=== PATIENT | male | born 1970 | race Caucasian/White ===

== ENCOUNTER 2018-03-11 03:33 | Observation (INO) | payer MEDICARE, BC ==
[2018-03-11] VITALS (10 sets, daily range): BP systolic 86–139; BP diastolic 37–74; Ht 172.7 cm; Wt 118.9 kg
[~2018-03-11] VITALS: Ht 172.7 cm; Wt 118.9 kg
--- NOTE | ~2018-03-11 | HEMODYNAMI ---
PATIENT:LUPE COOK MEDICAL RECORD: [id number] : 68 LOCATION:[facility] D.2116 ADMISSION DATE: 03/11/18 Generatedon:03/11/201811:43 Patient name: LUPE COKO Patient #: [id number] SSN: : 1970 Date of study: 03/11/2018 Page: Of Hemodynamic Procedure Report Patient Data Patient Demographics Procedure consent was obtained First Name: LUPE Gender: Male Last Name: JOYCE : 1970 [facility] Initial: B Age: 48 year(s) Patient #: [id number] Race: Unknown Additional ID: [id number] Contact details [address]: [address] [place] [address] COURT State: [place] City: [place] Zip code: [address] Past Medical History Allergies Allergen Reaction Date Comments Reported Sulfa drugs 03/11/2018 Penicillins 03/11/2018 Admission Admission Data Admission Date: 03/11/2018 Admission Time: 4:49 Room #: 2116 Procedure Procedure Types Cath Procedure Diagnostic Procedure [facility] w/Coronaries Procedure Description Procedure Date Procedure Date: 03/11/2018 Procedure Start Time: 11:23 Procedure End Time: 11:43 Procedure Staff Name Function Carlos Llanes MD Performing Physician Ailyn Scott RT Monitor Shun Lew RN Nurse Rose Auguste RT Scrub Procedure Data Cath Procedure Fluoroscopy Diagnostic fluoroscopy Total fluoroscopy Time: 8.2 time: 8.2 min min Diagnostic fluoroscopy Total fluoroscopy dose: dose: 2041 mGy 2041 mGy Contrast Material Contrast Material Type Amount (ml) Isovue 370 91 Entry Location Entry Primary Successful Side Size Upsize Upsize Entry Closure Pearce ccessful Closure Location (Fr) 1 (Fr) 2 (Fr) Remarks Device Remarks Radial Right 6 Fr Mechanical artery Short Compression Estimated blood loss: 5 ml Diagnostic catheters Device Type Used For End Catheter Placement DIAGNOSTIC Cecil 110cm 5 LV Angiography Fr catheter ([id number]) DIAGNOSTIC Cecil 110cm 5 Right Coronary Fr catheter (072191) Angiography DIAGNOSTIC Cecil 110cm 5 Left Coronary Fr catheter (127446) Angiography Procedure Complications No complications Procedure Medications Medication Administration Route Dosage Oxygen NC 2 l/min Lidocaine 2% added to field 20 Heparin Flush Bag added to field 2 bags (1000units/500ml NS) 0.9% NaCl I.V. 100 ml/hr Radial Cocktail I.A. 1 syringe (Verapomil 2mg/Nitro 400mcg/Heparin 1500units) Versed I.V. 1 mg Fentanyl I.V. 50 mcg Versed I.V. 1 mg Fentanyl I.V. 50 mcg Hemodynamics Rest Heart Rate: 82 (bpm) Pressure Samples Time Site Value (mmHg) Purpose Heart Use Rate(bpm) 11:27 LV 151/-20,12 EDP 85 Gradients Valve Time Site Site Mean SEP/DFP Peak To Heart Use 1 2 (mmHg) (sec/min) Peak Rate (mmHg) (bpm) Aortic 11:27 LV AO 79 Snapshots Pre Cath Intra NCS Post Cath Vital Signs Time Heart Resp SPO2 etCO2 NIBP (mmHg) Rhythm Pain Sedation Rate (ipm) (%) (mmHg) Status Level (bpm) 11:16:54 68 17 100 31.4 155/83(118) NSR 0 (11) 10(A) , No pain 11:21:15 77 18 100 28.4 155/88(122) NSR 0 (11) 10(A) , No pain 11:25:41 86 16 100 32.2 156/76(97) NSR 0 (11) 10(A) , No pain 11:29:59 83 15 94 33 128/79(99) NSR 0 (11) 9(A) , No pain 11:34:17 88 14 96 33.7 139/82(106) NSR 0 (11) 10(A) , No pain 11:38:39 87 14 97 33 142/80(104) NSR 0 (11) 10(A) , No pain 11:43:02 83 15 97 32.2 141/86(108) NSR 0 (11) 10(A) , No pain Medications Time Medication Route Dose Verified Delivered Reason Notes Effectiveness by by 11:20:49 Oxygen NC 2 l/min Carlos Buffie used for 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 100 Carlos Buffie Per ml/hr Shraddha Lew RN physician 11:23:11 Fentanyl I.V. 50 mcg Carlos Buffie for sedation Shraddha Lew RN, MD 11:23:30 Versed I.V. 1 mg Carlos Buffie for sedation Shraddha Lew RN, MD 11:25:16 Radial Cocktail I.A. 1 Carlos Carlos for (Verapomil syringe Shraddha Llanes MD vasodilation 2mg/Nitro MD 400mcg/Heparin 1500units) 11:27:34 Versed I.V. 1 mg Carlos Buffie for sedation Shraddha Lew RN, MD 11:27:38 Fentanyl I.V. 50 mcg Carlos Buffie for sedation Shraddha Lew RN, MD Procedure Log Time Note 10:51:27 Time tracking: Regular hours (M-F 7:00 - 5:00) 10:51:30 Plan of Care:Hemodynamics will remain stable., Cardiac rhythm will remain stable., Comfort level will be maintained., Respiratory function will remain adequate., Patient/ family verbilizes understanding of procedure., Procedure tolerated without complication., Recovers from procedure without complications.. 10:54:12 Ailyn Counts RT(R) sent for patient. Start room use. 11:04:07 Patient received from PCU to [facility] 2 Alert and oriented. Tansferred to table in Supine position. 11:04:08 Warm blankets applied, and jonathon hugger turned on for patient comfort. 11:04:08 Correct patient and procedure confirmed by team. 11:04:10 Signed procedure consent form obtained from patient. 11:04:11 ECG and BP/O2 sat monitors applied to patient. 11:04:11 Full Disclosure recording started 11:15:37 Vital chart was started 11:16:31 Rhythm: sinus rhythm 11:16:38 H&P Date Dictated: 03/11/2018 Within 30 days and on chart.. 11:16:44 Pre-procedure instructions explained to patient. 11:16:44 Pre-op teaching completed and patient verbalized understanding. 11:16:45 Family in patients room. 11:16:47 Patient NPO since Midnight. 11:16:54 Patient allergic to Sulfa drugs 11:16:58 Patient allergic to Penicillins 11:17:00 Is the patient allergic to Iodine/contrast media? No. 11:17:06 Is patient on blood thinner?Yes 11:17:09 ACC The patient was administered the following blood thiners within the last 24 hours: ACCAspirin, ACCPlavix 11:17:11 Patient diabetic? Yes. 11:17:12 If diabetic: On Metformin? Yes 11:17:14 If on Metformin: Last Dose? 03/10/2018 11:17:37 Previous problem with sedation/anesthesia? Yes bronchospasms w/intubation 11:17:39 Snore? Yes 11:17:41 Sleep apnea? Yes 11:17:42 Deviated septum? No 11:17:43 Opens mouth fully? Yes 11:17:44 Sticks out tongue? Yes 11:17:48 Airway obstruction? No ? 11:17:50 Dentures? No ? 11:17:53 Pre procedure: right dorsailis pedis pulse 2+ Normal; easily identifiable; not easily obliterated 11:17:55 Modified Ralf's test Ulnar < 7 seconds 11:18:00 Patient pain scale 3/10 chest. 11:18:05 IV patent on arrival in left hand with 0.9% NaCl at [facility]. 11:18:10 Lab results completed and on chart. 11:18:12 Right Radial & Right Groin area was prepped with chlora-prep and draped in sterile fashion 11:18:13 Alarms reviewed by R. N. 11:18:14 Sharps counted by scrub and verified by R.N. 11:18:14 Final Timeout: patient, procedure, and site verified with staff and physician. All members of the team are in agreement. 11:18:16 Right Radial site verified by team. 11:18:19 Physical assessment completed. ASA score P 2 - A patient with mild systemic disease as per Carlos Llanes MD. 11:18:21 Sedation plan: IV Moderate Sedation Medication:Versed, Fentanyl 11:20:49 Oxygen 2 l/min NC was administered by Shun Lew RN; used for procedure; 11:20:51 Zero performed for pressure channel P1 11:20:57 Lidocaine 2% 20ml vial added to field was administered by Carlos Llanes MD; for local anesthetic; 11:21:03 Heparin Flush Bag (1000units/500ml NS) 2 bags added to field was administered by Carlos Llanes MD; used for procedure; 11:21:13 0.9% NaCl 100 ml/hr I.V. was administered by Shun Lew RN; Per physician; 11:21:23 Use device set Radial Dx or PCI 11:21:24 ACIST Syringe (10957) opened to sterile field. 11:21:25 Medline Cath Pack ([id number]) opened to sterile field. 11:21:25 Bag Decanter (2002) opened to sterile field. 11:21:26 DIAGNOSTIC WIRE .035 260cm J wire (286061) opened to sterile field. 11:21:27 ACIST Hand Control (83262) opened to sterile field. 11:21:27 ACIST Manifold (48138) opened to sterile field. 11:21:31 MBrace Wrist Support ([id number]) opened to sterile field. 11:21:33 SHEATH 6Fr Prelude Radial ([id number]) opened to sterile field. 11:22:57 Procedure started. 11:23:11 Fentanyl 50 mcg I.V. was administered by Shun Lew RN; for sedation; 11:23:15 Local anesthetic to right radial artery with Lidocaine 2% by Carlos Llanes MD.INITIAL ACCESS ONLY 11:23:30 Versed 1 mg I.V. was administered by Shun Lew RN; for sedation; 11:23:46 Baseline sample Acquired. 11:24:17 A 6 Fr Short sheath was inserted into the Right Radial artery 11:25:16 Radial Cocktail (Verapomil 2mg/Nitro 400mcg/Heparin 1500units) 1 syringe I.A. was administered by Carlos Llnaes MD; for vasodilation; 11:25:18 A DIAGNOSTIC Cecil 110cm 5 Fr catheter (545558) was advanced over the wire and used for LV Angiography. 11:27:15 LV gram done using HAYNES 11:27:20 Injector settings: Ml/sec: 12, Volume: 8, 11:27:21 LV hemodynamics recorded. 11:27:34 Versed 1 mg I.V. was administered by Shun Lew RN; for sedation; 11:27:38 Fentanyl 50 mcg I.V. was administered by Shun Lew RN; for sedation; 11:29:03 A DIAGNOSTIC Cecil 110cm 5 Fr catheter (112191) was advanced over the wire and used for Right Coronary Angiography. 11:32:07 A DIAGNOSTIC Cecil 110cm 5 Fr catheter (221050) was advanced over the wire and used for Left Coronary Angiography. 11:37:08 Catheter removed. 11:37:12 Procedure ended.(Physican Out) 11:37:27 Sheath removed intact; hemostasis achieved with Mechanical Compression to the Right Radial artery. 11:37:36 Fluoroscopy time 08.20 minutes. 11:37:48 Fluoroscopy dose: 1 mGy 11:37:48 Flurop Dose total: 2040 11:37:58 Contrast amount:Isovue 370 91ml. 11:37:59 Sharps counted by scrub and verified by R.N. 11:38:02 TR band inflated with 12cc of air. 11:38:04 Insertion/operative site no bleeding no hematoma. 11:38:13 Post right radial artery:stable, clean and dry 11:38:14 Post Procedure Pulses reassessed and unchanged 11:38:17 Post-procedure physical assessment completed. ASA score P 2 - A patient with mild systemic disease as per Carlos Llanes MD. 11:38:22 Post procedure rhythm: unchanged. 11:38:32 Estimated blood loss: 5 ml 11:38:38 Post procedure instruction explained to patient.Patient verbalizes understanding. 11:38:39 Patient needs reinforcement of post procedure teaching. 11:38:44 TR BAND Large ([id number]) opened to sterile field. 11:39:16 Procedure Complication : No complications 11:39:20 See physician's report for complete and final results. 11:39:45 Procedure and supply charges have been captured, reviewed, submitted and are correct. 11:43:07 Vital chart was stopped 11:43:13 Report given to PCU. 11:43:16 Patient transfered to PCU with Bed. 11:43:21 Procedure ended. 11:43:21 Full Disclosure recording stopped 11:43:30 End room use (Document Last) Device Usage Item Name Manufacture Quantity Catalog Number Hospital Part Current M inimal Lot# / Charge Number Stock Stock Serial# Code ACIST Syringe Acist 1 61558 242706 118310 205748 2 0 (13743) [employer] Medline Cath Cardinal 1 [id number] 615721 06802 334298 5 Pack Health ([id number]) Bag Decanter Microtek 1 2001S 557781 30199 217685 5 (2001S) Medical Inc. DIAGNOSTIC WIRE St Jag 1 022041 620224 548425 310640 3 0 .035 260cm J wire (613033) ACIST Hand Acist 1 84996 610100 146126 312845 5 Control (61207) [employer] ACIST Manifold Acist 1 54298 307861 136325 223344 5 (92270) [employer] MBrace Wrist Advanced 1 140-0250-00 816407 99153 699828 5 Support Vascular ([id number]) Dynamics SHEATH 6Fr Merit 1 [id number] 183164 682318 303193 5 Prelude Radial Medical ([id number]) DIAGNOSTIC Terumo 1 40-6491 573828 186270 923404 5 Cecil 110cm 5 Fr catheter (472132) TR BAND Large Terumo 1 [id number] 216091 067199 744106 4 0 ([id number]) Signature Audit [place] Stage Time Signature Unsigned Intra-Procedure 03/11/2018 Ailyn 11:43:54 AM Counts RT(R) Signatures Monitor : Ailyn Signature : Counts RT Date : Time : [address] [address]
--- NOTE | ~2018-03-11 | EC ---
PATIENT:LUPE COOK DATE OF SERVICE: 03/11/18 SEX: M MEDICAL RECORD: [id number] DATE OF : 68 LOCATION:D.M2 D.211 AGE OF PATIENT: 48 ADMISSION DATE: 03/11/18 REFERRING PHYSICIAN: INTERPRETING PHYSICIAN: SIOBHAN WERNER MD ECHOCARDIOGRAM REPORT ECHO CHARGES 4 ECHO COMPLETE Date: 03/11 CLINICAL DIAGNOSIS: CHEST PAIN ECHOCARDIOGRAPHIC MEASUREMENTS (adult normal given) AC root (d.<3.7cm) 3.5 cm LV Septum d (<1.2 cm> 1.4 cm Valve Excursion 2.1 cm LV Septum (systole) 1.5 cm Left Atria (s.<4.0cm> 4.3 cm LVPW d(<1.2cm) 1.3 cm RV (d.<2.3cm) 4.2 cm LVPW (sytole) 1.9 cm LV diastole(<5.6CM) 5.9 cm MV E-F(>70mm/sec) cm LV systole 4.0 cm LVOT Diameter 2.5 cm MV exc.(>10mm) 1.9 cm Est.ejection fraction (50-75%) % DOPPLER: LVIT cm/sec A 72.0 cm/sec E 94.0 cm/sec LA cm/sec RVSP 18 mmHg LVOT 107 cm/sec AOP1/2T m/s Asc. Ao 149 cm/sec RVOT 95 cm/sec RA cm/sec PA 135 cm/sec AV Gradient Peak 8.89 mmHg AV Mean 4.51 mmHg AV Area 3.6 cm MV Gradient Peak 7.36 mmHg MV Mean 2.15 mmHg MV Area cm COMMENTS: [employer] Developer: Stephanie SANTOS Picker Machine Operator: Mike Werner TAPE# PACS Pericardial Effusion N DATE OF SERVICE: PROCEDURE: Transthoracic echocardiogram. FINDINGS: 1. Left ventricle has mild left ventricular hypertrophy. Inflow characteristics are normal. Ejection fraction is 60%. 2. The left atrium is mildly dilated. 3. The mitral valve is grossly normal. 4. The aortic valve is grossly normal. ECHOCARDIOGRAM REPORT [id number] LUPE COOK 5. The tricuspid valve has trace tricuspid regurgitation. RVSP is normal. Pericardium is normal. 6. The right ventricle is mildly dilated. 7. The right atrium is mildly dilated. 8. The pulmonic valve appears to be normal. CONCLUSIONS: The patient has evidence of mild left ventricular hypertrophy, otherwise normal echocardiogram. TRANSINT:[id number] Voice Confirmation ID: [id number] DOCUMENT ID: [id number] SIOBHAN WERNER MD at 0927 CC: [id number] DICTATION DATE: 03/12/18821 PLIER WORKER: 03/12/18 1225 DIS IN 03/12/18 [facility] [address] [place] [address]
[~2018-03-11 03:33] MED LIST: ALOPHEN PILLS5 MG PO; AMBIEN10 MG PO; CIALIS10 MG PO; COLACE100 MG PO; DEMEROL 2525 MG/1 ML IM; DEMEROL50 MG PO; DULCOLAX10 MG/SUPP RC; DURAGESIC1 PATCH .2 TD; GLUCOPHAGE1000 MG PO; LOMOTIL TABLET1 TAB PO; LYRICA50 MG PO; MEDROL DOSE PACK4 MG PO; MIRALAX17 GM PO; NORVASC10 MG PO; ROXICODONE5 MG PO; SENOKOT-S TABLE1 TAB PO; TESTOSTERONE IM; ULTRAM50 MG PO; VALIUM5 MG PO; VICTOZA0.6 MG/0.1 SQ; VITAMIN B-1000 MCG/M IM; VYVANSE70 MG PO; WELLBUTRIN XL300 M1 PO; ZANAFLEX2 MG PO; ZOFRAN4 MG PO
[2018-03-11] MEDS ORDERED: KOMBIGLYZE XR1 EAC1 PO (03:42)
[2018-03-11] MEDS ORDERED: HUMULIN R100 U/ML SC (03:44)
[2018-03-11 04:00] LABS: BASOPHILS 0.2 % (0-2); EOSINOPHILS 1.5 % (0-7); HEMATOCRIT 44.8 % (42.0-54.0); HEMOGLOBIN 16.2 g/dL (13.5-17.5); IMMATURE GRANULOCYTES 0.8 % (0-5); LYMPHOCYTES 30.2 % (15-50); MCH 31.8 pg (26.0-34.0); MCHC 36.2 g/dL (31.0-37.0); MEAN PLATELET VOLUME 11.4 fL (7.4-10.4); MONOCYTES 13.7 % (2-11); NEUTROPHILS 53.6 % (40-80); PLATELET COUNT 349 10x3/uL (130-400); RBC 5.09 10x6/uL (4.20-6.10); RDW 13.6 % (11.5-14.5); WBC 9.6 10x3/uL (4.8-10.8)
[2018-03-11 04:24] LABS: ALBUMIN 3.6 g/dL (3.4-5.0); ALKALINE PHOSPHATASE 78 U/L (46-116); ALT (SGPT) 26 U/L (10-68); CALC OSMOLALITY 278 mosm/kg (275-300); CALCIUM 8.8 mg/dL (8.5-10.1); CARBON DIOXIDE 22.5 mmol/L (21.0-32.0); CHLORIDE - SERUM 103 mmol/L (98-107); POTASSIUM - SERUM 3.9 mmol/L (3.5-5.1); PROTEIN - SERUM 7.2 g/dL (6.4-8.2); SODIUM 136 mmol/L (136-145); UREA NITROGEN 12 mg/dL (7-18); eGFR NON AFRICAN AMERICAN 84 mL/min (90-120)
[2018-03-11 04:26] LABS: GLUCOSE 216 mg/dL (74-106)
[2018-03-11 04:27] LABS: CREATINE KINASE 87 UL (21-232); TROPONIN-I < 0.017 ng/mL (0.000-0.060)
[2018-03-11 04:38] LABS: APTT 27.7 SECONDS (22.8-39.4); INR 1.02 (0.85-1.17)
[2018-03-12 01:09] VITALS: BP 158/64
[2018-03-12 05:59] LABS: BASOPHILS 0.1 % (0-2); EOSINOPHILS 2.4 % (0-7); HEMATOCRIT 45.5 % (42.0-54.0); HEMOGLOBIN 16.1 g/dL (13.5-17.5); IMMATURE GRANULOCYTES 0.7 % (0-5); MCH 31.5 pg (26.0-34.0); MCHC 35.4 g/dL (31.0-37.0); MEAN PLATELET VOLUME 9.9 fL (7.4-10.4); MONOCYTES 13.6 % (2-11); NEUTROPHILS 52.2 % (40-80); RBC 5.11 10x6/uL (4.20-6.10); RDW 12.7 % (11.5-14.5); WBC 7.5 10x3/uL (4.8-10.8)
[2018-03-12 06:05] VITALS: BP 112/55
[2018-03-12 06:34] LABS: ALBUMIN 3.2 g/dL (3.4-5.0); ALKALINE PHOSPHATASE 76 U/L (46-116); ALT (SGPT) 23 U/L (10-68); BILIRUBIN - TOTAL 0.49 mg/dL (0.2-1.3); CALCIUM 8.5 mg/dL (8.5-10.1); CARBON DIOXIDE 26.3 mmol/L (21.0-32.0); CHLORIDE - SERUM 104 mmol/L (98-107); POTASSIUM - SERUM 3.6 mmol/L (3.5-5.1); PROTEIN - SERUM 6.7 g/dL (6.4-8.2); SODIUM 138 mmol/L (136-145); UREA NITROGEN 13 mg/dL (7-18)
[2018-03-12 06:35] LABS: CALC OSMOLALITY 278 mosm/kg (275-300); CREATININE - SERUM 0.6 mg/dL (0.6-1.3); GLUCOSE 152 mg/dL (74-106); eGFR NON AFRICAN AMERICAN > 90 mL/min (90-120)
[2018-03-12 07:02] LABS: PLATELET COUNT 161 10x3/uL (130-400)
[2018-03-12] MEDS ORDERED: PROAIR HFA8.5 GM INH (13:43)
== END 2018-03-12 16:11 | disposition home or self-care (01) ==
LOC: D.ER 03:33 → D.EDHOLD 04:49 → OBSVTIME 04:49 → D.M2 04:49
PROVIDERS: Emergency Medicine; Family Medicine
DX: R07.89 Other chest pain (principal); I25.10 Atherosclerotic heart disease of native coronary artery without angina pectoris; E11.65 Type 2 diabetes mellitus with hyperglycemia; I10 Essential (primary) hypertension; F32.9 Major depressive disorder, single episode, unspecified; F41.9 Anxiety disorder, unspecified; E66.9 Obesity, unspecified

== ENCOUNTER 2018-05-02 16:20 | Emergency (ER) | payer MEDICARE, BC ==
[~2018-05-02] VITALS: Ht 172.7 cm; Wt 112.5 kg
[~2018-05-02 16:20] MED LIST changes: +HUMULIN R100 U/ML SC; +KOMBIGLYZE XR1 EAC1 PO; +PROAIR HFA8.5 GM INH
[2018-05-02 16:28] VITALS: Ht 172.7 cm; Wt 112.5 kg
[2018-05-02 16:57] LABS: BASOPHILS 0.1 % (0-2); EOSINOPHILS 0 % (0-7); HEMATOCRIT 49.3 % (42.0-54.0); HEMOGLOBIN 18.4 g/dL (13.5-17.5); IMMATURE GRANULOCYTES 0.4 % (0-5); LYMPHOCYTES 18.8 % (15-50); MCH 33.3 pg (26.0-34.0); MCHC 37.3 g/dL (31.0-37.0); MCV 89.2 fL (80.0-100.0); MEAN PLATELET VOLUME 9.9 fL (7.4-10.4); MONOCYTES 2.1 % (2-11); NEUTROPHILS 78.6 % (40-80); RBC 5.53 10x6/uL (4.20-6.10); RDW 12.1 % (11.5-14.5); WBC 6.8 10x3/uL (4.8-10.8)
[2018-05-02 16:59] LABS: PLATELET COUNT 197 10x3/uL (130-400)
[2018-05-02 17:22] LABS: ALBUMIN 3.9 g/dL (3.4-5.0); ANION GAP 15.7 mmol/L (8-16); BILIRUBIN - TOTAL 0.39 mg/dL (0.2-1.3); CARBON DIOXIDE 24.5 mmol/L (21.0-32.0); CREATININE - SERUM 1.2 mg/dL (0.6-1.3); POTASSIUM - SERUM 4.2 mmol/L (3.5-5.1); PROTEIN - SERUM 8.3 g/dL (6.4-8.2)
[2018-05-02 18:30] VITALS: BP 153/080
== END 2018-05-02 18:43 ==
LOC: D.ER 16:20
PROVIDERS: Family Medicine
DX: H53.9 Unspecified visual disturbance (principal); R51 Headache; R22.9 Localized swelling, mass and lump, unspecified; E87.2 Acidosis; H57.12 Ocular pain, left eye; E11.9 Type 2 diabetes mellitus without complications; I10 Essential (primary) hypertension